=== PATIENT | female | born 1950 ===

== ENCOUNTER 2017-07-03 08:55 | Day surgery (SDC) | payer MEDICARE, MEDICAID ==
[2017-06-26 08:55] VITALS: BMI 37.8
[2017-07-03] MEDS ORDERED: Propofol 10 mg/ml Inj (20 ML) ONE (11:05)
[2017-07-03] MEDS ORDERED: Sodium Chloride 0.9% 1,000 ML IV SCH (11:30)
[2017-07-03 11:59] VITALS: RESP 16
[2017-07-03 14:30] VITALS: BP 94/58; PULSE 65; TEMP 97.7; O2SAT 99
== END 2017-07-03 13:12 | disposition home or self-care (01) ==
LOC: ENDO 08:55
PROVIDERS: ATTEND Internal Medicine
DX: Z12.11 Encounter for screening for malignant neoplasm of colon (principal); D12.4 Benign neoplasm of descending colon; K57.30 Diverticulosis of large intestine without perforation or abscess without bleeding; K64.8 Other hemorrhoids
CPT/HCPCS: 45380; 88305; J2704; J7030; J7040

== ENCOUNTER 2018-07-19 12:10 | Outpatient (CLI) | payer MEDICARE, MEDICAID | END 2018-07-19 12:11 | disposition home or self-care (01) | LOC: RAD 12:10 ==